=== PATIENT | male | born 1970 ===

== ENCOUNTER 2018-06-08 21:34 | Emergency (ER) | payer SELFPAY ==
[2018-06-08] MEDS ORDERED: EPINEPHrine- 1 MG in Sodium Chloride 0.9% 250 ML IVPB ONE (22:10)
--- NOTE | 2018-06-08 22:22 | ED PDOC ---
HPI: Cardiac Arrest Time Seen by Provider: 06/08/18 21:51 Chief Complaint (Nursing): Cardiac Arrest Chief Complaint (Provider): Cardiac Arrest History Per: Other (Friend) Reason For Code Blue: Full Arrest Circumstances: Other (Patient dropped off by friend in the car.) Arrest Witnessed By: Other (Friend) CPR Initiated Prior To MD Arrival?: No Down-Time Before ACLS: Mins Treatment Initiated Prior To MD Arrival: CPR, Intubation Medications Given Prior To MD Arrival: Epinephrine Additional Complaint(s): 47 y/o male with a PMHx of HTN, heroin abuse and cocaine abuse brought to the ED for a cardiac arrest. Patient was using heroin and cocaine with friends in the car when he suddenly slumped over while driving. Patient's friend thus dropped off the patient in front of the ER. Patient was pulled out of the car by 2 ERT's and 2 [facility] EMT's who were present on patient arrival. On arrival , patient was unresponsive and pulseless. CPR started on arrival by ER staff and provider. Code Blue called on arrival at 2134. Patient intubated once arrived to the ED. History obtained from brother of friend who witness patient' s cardiac arrest. Friend additionally states patient recently got out of assisted 2 weeks ago. Unable to obtain history due to patient's condition. PMD: Unknown - Initial Findings Mentation: Unresponsive Pulse: None Past Medical History Reviewed: Historical Data, Nursing Documentation, Vital Signs Vital Signs: Last Vital Signs Temp Pulse 74 06/09/18 09:24 Resp 19 06/08/18 22:08 BP 84/58 L 06/09/18 09:24 Pulse Ox - Medical History PMH: HTN - Surgical History Surgical History: No Surg Hx - Family History Family History: States: Unknown Family Hx - Social History Drugs: Cocaine, Other (Heroine) - Immunization History Hx Tetanus Toxoid Vaccination: No Hx Influenza Vaccination: No Hx Pneumococcal Vaccination: No - Allergies Allergies/Adverse Reactions: Allergies Allergy/AdvReac Type Severity Reaction Status Date / Time No Known Allergies Allergy Verified 08/24/16 15:20 Review of Systems Review Of Systems: ROS cannot be obtained secondary to pt's inabilty to answer questions. Physical Exam - Reviewed Nursing Documentation Reviewed: Yes Vital Signs Reviewed: Yes - Physical Exam Appears: Positive for: In Acute Distress (cardiopulmonary arrest) Head Exam: Positive for: ATRAUMATIC Skin: Positive for: Pallor Eye Exam: Negative for: EOMI, PERRL (Pupils are fixed and dilated) ENT: Positive for: Normal ENT Inspection Cardiovascular/Chest: Positive for: Other (Pulseless) Respiratory: Positive for: Other (No spontaneous respirations) Gastrointestinal/Abdominal: Positive for: Soft. Negative for: Distended Extremity: Negative for: Deformity, Swelling Neurologic/Psych: Positive for: Other (Comatose) - Laboratory Results Result Diagrams: 06/08/18 22:44 - ECG ECG: Positive for: Interpreted By Me, Viewed By Me ECG Rhythm: Positive for: ST/T Changes. Negative for: Normal QRS, Normal ST Segment, Sinus Rhythm Interpretation Of Abn EKG: Acute TN/STEMI - Radiology X-Ray: Interpreted by Me, Viewed By Me X-Ray Interpretation: Other (ETT in place) - Core Measure Core Measure Indicators: Code Heart - Critical Care Total Time (In Min): 120 Documented Critical Care: Time excludes all time spent performint seperately billable procedures Medical Decision Making Medical Decision Making: Time: 2133 -- Patient arrived to the ED. Patient not in V-Fib but in PEA thus CPR began and Code Blue called. -- Accucheck = 156 -- Patient given 3 doses of Narcan with no change. Time: 2138 -- Patient intubated by provider. See procedure note for more information. Time: 2158 -- 8 doses of Epinephrine given before pulse was clearly felt. Time: 2202 -- Code Blue and Code Heart activated. CPR continued. 3 doses of Epinephrine given before pulse was clearly felt and heart rate stabilized. -- Provider administered Central Line. See procedure note for more information Time: 2214 -- Spoke Dr. Hauser who states patient does not meet criteria for Code Heart Transfer since patient has no sustained ROSC and unstable for transfer. Recommends giving heparin, integrilin, aspirin, resuscitating, and admitting to ICU. Time: 2223 Plan: -- EKG -- CXR Portable -- Gang Boss -- IV Insertion -- Sodium chloride 250 ML Epinephrine 1 mg IVPB 1mcg/min -- Heparin 4000 units IVP -- Urine Drug Screen Time: 2226 -- Code Blue activated. CPR continued. 3 doses of Epinephrine given before pulse was clearly felt. Time: 2238 Plan: -- ABG Shock Panel -- Aspirin 300 mg WI -- Ventilator Setting -- Heparin 25,000 units in 250 ml IV 10 mls/hr Time: 2243 Plan: -- Type and Screen -- Alcohol Serum -- CMP -- Magnesium -- Phosphorus -- Troponin I -- Cardiology Consult -- ED Urine Dipstick -- CBC with differentials -- PTT -- Prothrombin Time -- Bolus 15.5 mg IVP -- Steven -- Call Cardiology Consult Time: 2247 -- Patient went into V-Fib and shocked at 150J. -- Code Blue activated. 3 epinephrine's administered. Time: 2256 Plan: -- Amiodarone 300 mg Dextrose 5% in water 100 ml IVPB -- Nexterone 150 mg in Destrose 100 ml (Premix) 150 mg in 100 ml IVPB Time: 2257 -- Patient went into V-Fib Time: 2300 -- Patient shocked at 150J. -- 5 doses of Epinephrine given with no pulse. Patient remained asystole. Patient is not candidate for therapeutic hypothermia due to multiple contraindications including but not limited to no sustained ROSC, severe hypotension, and persistent recurrent cardiac arrest. CPR is terminated to due persistent asystole unable to sustain ROSC. Time of : 2312 Time: 2346 -- Spoke to patient's friend who states patient does not have any family in the state. No PCP in record. [facility] contacted. Scribe Attestation: Documented by Charis Lopez acting as a scribe for Leigh Mitchell MD. Provider Scribe Attestation: All medical record entries made by the Scribe were at my direction and personally dictated by me. I have reviewed the chart and agree that the record accurately reflects my personal performance of the history, physical exam, medical decision making, and the department course for this patient. I have also personally directed, reviewed, and agree with the discharge instructions and disposition. Procedures - Time-Out Type of Procedure: Endotracheal intubation and Central line Correct Patient (with visual ID + MR# on ID Band): Yes Correct Procedure: Yes Correct Site Marked: Yes - Central Line Central Line Lumen: triple Central Line Procedure: betadine prep Central Line Postion: femoral (R) Complications: none Central Line Post Position: good blood return - Intubation Intubation Method: orotracheal Tube Size (cm): 7.0 Breath Sounds after Intubation: equal Intubation Complications: vomited Post Intubation Xray: Yes Disposition - Clinical Impression Clinical Impression: Cardiac arrest - Patient ED Disposition Is Patient to be Admitted: No - Disposition Disposition: Other Institution ([facility]) Disposition Time: 23:13 Condition: - POA Core Measure Indicators: Code Heart
[2018-06-08] MEDS ORDERED: Heparin 25,000units in D5W 25,000 UNITS/250 ML BAG IV SCH (22:30)
[2018-06-08 22:43] LABS: ABG ALLEN TEST YES; ARTERIAL BLOOD GAS O2 SAT 97.6 % (95-98); ARTERIAL BLOOD GAS PCO2 112 mm/Hg (35-45); ARTERIAL BLOOD GAS PH < 6.80 (7.35-7.45); ARTERIAL BLOOD GAS PO2 216 mm/Hg (80-100)
[2018-06-08] MEDS ORDERED: Eptifibatide 20 mg/10mL Inj IVP ONE (22:44)
[2018-06-08] MEDS ORDERED: Amiodarone 150 mg/D5W 100 ml 150 MG/100 ML BAG IVPB ONE (22:57)
[2018-06-08 23:05] LABS: EOS # 0.3 K/uL (0.0-0.7); EOS % 1.4 % (0.0-4.0); HEMOGLOBIN 14.4 g/dL (12.0-18.0); LYMPH % 40.7 % (20.0-40.0); MEAN CELL VOLUME 107.1 fl (80.0-94.0); MEAN CORPUSCULAR HEMOGLOBIN 32.1 pg (27.0-31.0); MEAN CORPUSCULAR HGB CONC 29.9 g/dL (33.0-37.0); MEAN PLATELET VOLUME 11.4 fl (7.2-11.7); MONO # 1.7 K/uL (0.0-0.8); MONO % 6.9 % (0.0-10.0); NEUT # 12.5 K/uL (1.8-7.0); NRBC % 0.3 % (0.0-0.0); RBC 4.48 Mil/uL (4.40-5.90); RED CELL DISTRIBUTION WIDTH 14.5 % (11.5-14.5); WHITE BLOOD COUNT 24.6 K/uL (4.8-10.8)
[2018-06-08] MEDS ORDERED: Amiodarone 900 MG in Dextrose 5% In Water 500 ML IVPB SCH (23:07)
[2018-06-08 23:09] LABS: INR 1.3
[2018-06-08 23:12] LABS: PARTIAL THROMBOPLASTIN TIME 46.6 Seconds (25.6-37.1)
[2018-06-08] MEDS ORDERED: AMIODARONE IVPB ONE (23:15)
[2018-06-08] MEDS ORDERED: DEXTROSE IVPB ONE (23:15)
[2018-06-09 09:24] VITALS: PULSE 74; RESP 19
[2018-06-09 09:32] VITALS: BP 64/38
--- NOTE | 2018-06-09 09:48 | RAD ---
Date of service: 06/08/2018 HISTORY: code blue COMPARISON: No prior. FINDINGS: LUNGS: Bilateral interstitial changes, left greater than right. PLEURA: No significant pleural effusion identified, no pneumothorax apparent. CARDIOVASCULAR: Normal. OSSEOUS STRUCTURES: No significant abnormalities. VISUALIZED UPPER ABDOMEN: Normal. OTHER FINDINGS: ETT above the noah. IMPRESSION: Bilateral interstitial changes, left greater than right.
--- NOTE | 2018-06-09 10:55 | CARD ---
APPROVED REPORT Date of service: 06/08/2018 <Conclusion> Atrial fibrillation. Inferior-posterior infarct, possibly acute ACUTE FL / STEMI Consider right ventricular involvement in acute inferior infarct Abnormal ECG
== END 2018-06-08 23:13 ==
LOC: H.ER 21:34
DX: I46.9 Cardiac arrest, cause unspecified (principal); F14.10 Cocaine abuse, uncomplicated; F11.19 Opioid abuse with unspecified opioid-induced disorder; I10 Essential (primary) hypertension
CPT/HCPCS: 71045; 82803; 82948; 85025; 85610; 85730; 92950; 93005; 96374; 96375; 99285; J0171; J0282; J1644; J7060